=== PATIENT | female | born 1945 | race Caucasian/White ===

== ENCOUNTER 2016-12-06 12:47 | Inpatient (IN) | payer MEDICARE ==
[~2016-12-06] VITALS: Ht 154.9 cm; Wt 58.3 kg
[2016-12-06 12:48] VITALS: BP 132/94
[2016-12-06] MEDS ORDERED: LISINOPRIL/HCTZ1 TA3 PO (12:52)
[2016-12-06 13:18] LABS: HEMATOCRIT 46.6 % (37.0-47.0); HEMOGLOBIN 15.8 g/dl (12.0-16.0); MEAN CORPUSCULAR HGB 30.9 pg (27.0-31.0); MEAN CORPUSCULAR HGB CONC 33.9 g/dl (33.0-37.0); MEAN PLATELET VOLUME 12.2 fl (9.6-12.3); PLATELET COUNT AUTOMATED 175 10*3/uL (130-400); RED BLOOD COUNT 5.12 10*6/uL (4.10-5.10); RED CELL DISTRI WIDTH 12.7 % (0-14.5); WHITE BLOOD COUNT 17.6 10*3/uL (4.8-10.8)
[2016-12-06 13:27] LABS: PROTHROMBIN TIME 10.9 SECONDS (9.0-12.4)
[2016-12-06 13:34] LABS: BILIRUBIN NEGATIVE (NEGATIVE); BLOOD TRACE-LYSED (NEGATIVE); CLARITY CLOUDY (CLEAR); COLOR YELLOW (YELLOW); GLUCOSE NEGATIVE (NEGATIVE); KETONE TRACE (NEGATIVE); LEUKO ESTERASE 1+ (NEGATIVE); NITRITE NEGATIVE (NEGATIVE); PROTEIN 2+ (NEGATIVE); UROBILINOGEN 0.2 E.U./dl (0.2-1.0)
[2016-12-06 13:35] LABS: ALBUMIN 4.3 gm/dl (3.1-4.5); BILIRUBIN, TOTAL 0.9 mg/dl (0.2-1.0); C-REACTIVE PROTEIN 0.68 MG/DL (0-0.3); CKMB 1.9 ng/ml (0.5-3.6); MAGNESIUM 2.4 mg/dL (1.5-2.1); POTASSIUM 3.1 mmol/L (3.5-5.1); TOTAL PROTEIN 8.4 gm/dL (6.4-8.2)
[2016-12-06 13:37] LABS: LYMPHOCYTE # 1.1 10*3/uL (1.3-4.4); MONOCYTE # 0.5 10*3/uL (0.1-1.0); NEUTROPHILS 91 % (47-73); PLATELET SUFFICIENCY NORMAL (NORMAL); TOTAL CELLS COUNTED 100 #CELLS
[2016-12-06 13:49] LABS: TROPONIN I 0.148 ng/ml (<0.045)
[2016-12-06 14:04] LABS: BACTERIA 2+; URINE REFLEX COMMENT YES (NO)
[2016-12-06 14:41] VITALS: BP 174/83
[2016-12-06 15:16] LABS: LA>2 REFLEX 2 HR DRAW NOW
[2016-12-06 15:32] VITALS: BP 170/74
[2016-12-06 15:42] LABS: LA>2 RFLX FOLLOW UP AT 2 HRS 2.4 mmol/L (0.4-2.0)
[2016-12-06 17:36] LABS: LA>2 REFLEX 4 HR DRAW NOW
[2016-12-06 18:09] LABS: CKMB 2.1 ng/ml (0.5-3.6)
[2016-12-06 18:16] LABS: TROPONIN I 0.148 ng/ml (<0.045)
[2016-12-06 20:00] VITALS: BP 157/81
[2016-12-06] MEDS ORDERED: REGLAN IV (20:19)
[2016-12-06] MEDS ORDERED: PROTONIX40 M1 IV (20:19)
[2016-12-06] MEDS ORDERED: MERREM IV1 GM IV (20:19)
[2016-12-07] VITALS: BP 132/85
[2016-12-07 00:26] LABS: CKMB 1.9 ng/ml (0.5-3.6)
[2016-12-07 00:30] LABS: TROPONIN I 0.131 ng/ml (<0.045)
== END 2016-12-07 01:52 | disposition short-term general hospital (02) | DRG 871 ==
LOC: ED 12:47 → EDHOLD 14:22 → 5E 14:22
PROVIDERS: Emergency Medicine; Internal Medicine
DX: A41.9 Sepsis, unspecified organism (principal); N17.0 Acute kidney failure with tubular necrosis; E87.2 Acidosis; E86.0 Dehydration; K92.2 Gastrointestinal hemorrhage, unspecified; N39.0 Urinary tract infection, site not specified; I10 Essential (primary) hypertension; R65.20 Severe sepsis without septic shock; E78.5 Hyperlipidemia, unspecified; E87.6 Hypokalemia; K44.9 Diaphragmatic hernia without obstruction or gangrene; Z90.710 Acquired absence of both cervix and uterus; Z90.49 Acquired absence of other specified parts of digestive tract; Z87.891 Personal history of nicotine dependence; Z83.79 Family history of other diseases of the digestive system; Z84.89 Family history of other specified conditions; Z82.49 Family history of ischemic heart disease and other diseases of the circulatory system; Z88.0 Allergy status to penicillin; Z79.899 Other long term (current) drug therapy